=== PATIENT | male | born 1960 | race Hispanic/Latino ===

== ENCOUNTER → 2020-04-19 | Outpatient (CLI) | payer OTHER ==
[2020-04-19 14:38] LABS: BASOPHILS % (AUTO) 0.4 % (0.0-5.0); EOSINOPHILS % (AUTO) 0.8 % (0.0-8.0); HEMATOCRIT 45.4 % (42-54); MEAN CORPUSCULAR HEMOGLOBIN 30.1 pg (27.0-33.0); MEAN CORPUSCULAR HGB CONC 33.3 g/dL (32.0-36.0); MEAN CORPUSCULAR VOLUME 90.4 fL (79-99); MONOCYTES % (AUTO) 6.9 % (3.0-13.0); NEUTROPHILS % (AUTO) 70.6 % (40.0-77.0); PLATELET COUNT (AUTO) 210 K/uL (130-400); RED BLOOD CELL COUNT(AUTO) 5.02 MIL/uL (4.50-6.20); RED CELL DISTRIBUTION WIDTH 11.9 % (11.0-15.5); WHITE BLOOD COUNT (AUTO) 12.6 K/uL (4.8-10.8)
[2020-04-19 14:52] LABS: CREATININE 0.9 mg/dL (0.5-1.5)
== END | disposition home or self-care (01) ==
LOC: LAB 12:32
PROVIDERS: ATTEND Urology
DX: R19.00 Intra-abdominal and pelvic swelling, mass and lump, unspecified site (principal)
CPT/HCPCS: 36415; 80048; 85025

== ENCOUNTER → 2020-05-26 | Outpatient (CLI) | payer OTHER ==
[2020-05-26 13:51] LABS: BASOPHILS % (AUTO) 0.7 % (0.0-5.0); EOSINOPHILS % (AUTO) 1.9 % (0.0-8.0); LYMPHOCYTES % (AUTO) 22.6 % (21.0-51.0); MEAN CORPUSCULAR HEMOGLOBIN 29.6 pg (27.0-33.0); MEAN CORPUSCULAR VOLUME 89.7 fL (79-99); NEUTROPHILS % (AUTO) 67.6 % (40.0-77.0); PLATELET COUNT (AUTO) 212 K/uL (130-400); RED BLOOD CELL COUNT(AUTO) 5.13 MIL/uL (4.50-6.20); RED CELL DISTRIBUTION WIDTH 11.9 % (11.0-15.5); WHITE BLOOD COUNT (AUTO) 8.6 K/uL (4.8-10.8)
[2020-05-26 14:01] LABS: CREATININE 1.1 mg/dL (0.5-1.5); POTASSIUM 4.4 mmol/L (3.5-5.1)
== END | disposition home or self-care (01) ==
LOC: LAB 13:16
PROVIDERS: ATTEND Urology
DX: R19.00 Intra-abdominal and pelvic swelling, mass and lump, unspecified site (principal)
CPT/HCPCS: 36415; 80048; 85025

== ENCOUNTER → 2020-05-30 | Outpatient (CLI) | payer OTHER ==
[~2020-05-30] MED LIST: IOHEXOL-350 75 ML VIAL IV ONE
== END | disposition home or self-care (01) ==
LOC: RAH 07:42
PROVIDERS: ATTEND Urology
DX: K76.0 Fatty (change of) liver, not elsewhere classified (principal); N28.1 Cyst of kidney, acquired; R19.00 Intra-abdominal and pelvic swelling, mass and lump, unspecified site
CPT/HCPCS: 74178; Q9967

== ENCOUNTER 2024-11-29 17:33 | Emergency (ER) | payer MEDICARE ==
[~2024-11-29] VITALS: Ht 172.7 cm; Wt 78.9 kg
[~2024-11-29 17:33] MED LIST changes: +ESCI-8 PO; +FAMO20TA8 PO; -IOHEXOL-350 75 ML VIAL IV ONE; +LISI10TA24 PO; +NAPR-1194 PO; +OMEP40CA21 PO; +PRAV20TA59 PO; +ZOLP-685 PO
--- NOTE | 2024-11-29 17:50 | ERN ---
ED Note History of Present Illness Stated Complaint: INFECTION IN COLON Time Seen by MD: 17:35 Time Seen by Midlevel: 17:35 Dictation: The patient is a 64-year-old male with a history of hypertension, hyperlipidemia, cholecystectomy, back surgery and neurogenic bladder who self scab who presents to the emergency department with complaints of burning urination onset five days ago associated with body aches, fever, dizziness. Patient reports he thinks he has not urinary tract infection because these are the same symptoms he has when he has a infection. Patient denies any falls or head trauma. Denies any use of blood thinners. Denies any vomiting or diarrhea but reports occasional nausea. Allergies: Coded Allergies: No Known Drug Allergies (Unverified Allergy, Unknown, 03/20/22) Home Meds Reported Medications Naproxen (Naproxen) 500 Mg Tablet, 500 MG PO BID PRN for PAIN LEVEL 1 TO 5, TAB 03/21/22 Zolpidem Tartrate (Ambien) 10 Mg Tablet, 10 MG PO HSPRN, TAB 03/21/22 Famotidine (Famotidine) 20 Mg Tablet, 20 MG PO HS, TAB 03/21/22 Pravastatin Sodium (Pravastatin Sodium) 20 Mg Tablet, 20 MG PO DAILY, TAB 03/21/22 Escitalopram Oxalate (Escitalopram Oxalate) 10 Mg Tablet, 10 MG PO DAILY, TAB 03/21/22 Lisinopril (Lisinopril) 10 Mg Tablet, 10 MG PO DAILY, TAB 03/21/22 Omeprazole (Omeprazole) 40 Mg Capsule.dr, 40 MG PO DAILY, CAP 03/21/22 Past Medical History Past Medical History: Anxiety, Depression, GERD, High Cholesterol, Hypertension Surgical History: Cholecystectomy Surgical History Other: BACK SX (1998) Social History: Negative RN Note Reviewed/Agreed w/PFSH: Yes Review of System Dictation Constitutional: Negative for ,chills, and weight loss positive for body aches, fevers Eyes: Negative for injury, pain,redness, and discharge ENT: Negative for injury,pain or swelling Cardiovascular: Negative for chest pain, palpitations, and edema Respiratory: Negative for shortness of breath, cough, and wheezing, Abdomen/GI: Negative for abdominal pain, nausea, vomiting, diarrhea, and constipation Back: Negative for injury and pain : Negative for injury, bleeding and discharge positive for burning urination MS/Extremity: Negative for injury and deformity Skin: Negative for rash, and discoloration Neuro: Negative for headache, weakness, numbness, tingling, and seizure Psych: Negative for suicide ideation, homicidal ideation, and hallucinations Initial Vital Sign VS Vital Signs Date Time Temp Pulse Resp B/P (MAP) Pulse Ox O2 Delivery O2 Flow Rate FiO2 11/29/24 18:05 98.2 77 16 144/91 95 Room Air 0 11/29/24 18:11 21 Physical Exam Dictation Vital Signs reviewed General Appearance: Alert, oriented x 3, no acute distress, well developed, nourished. Head and Face: non-traumatic. Eyes: PERRL, pink conjunctivas, eyelid no trauma, anterior chamber with arcus senilis. Ears: Pinnas intact and no signs of trauma or erythema ear canals clear and no discharge TM no erythema Nose: No discharge, no bleeding. Oropharynx: Mouth normal, tongue pink. pharynx clear,no erythema, tonsils no exudates, no abscesses noted, mucous membrane moist Neck: Supple, non-tender, no thyromegaly, no masses, no JVD, no bruits Breast:Deferred Chest:No tenderness, no crepitus, no paradoxical movement, no retractions Lungs:Clear, well-ventilated, symmetric, no rales, no wheezing, no rhonchi, no stridor, good breath sounds bilaterally Heart: Regular rate, regular rhythm, no murmur, no gallops Vascular: no peripheral edema, Abdomen: Soft, positive bowel sounds, nondistended, no guarding, nontender, no rebound, no masses no hepatomegaly, no splenomegaly, no Flores's sign, no hernias. Rectal: Deferred Genital: Deferred Neurological: Normal speech, motor function intact, sensory function intact , upper extremities equal in strength, lower extremities equal in strength Musculoskeletal: Neck nontender, full range of motion, back nontender, full range of motion, Extremities: nontender, full range of motion Skin: Color pink, dry, no turgor, no rash, no lacerations, no abrasions, no contusions. Lymphatic: Deferred Results (Laboratory/Radiology) Laboratory/Radiology Laboratory Tests Test 11/29/24 18:22 White Blood Count 7.7 K/uL (4.8-10.8) Red Blood Count 4.98 MIL/uL (4.50-6.20) Hemoglobin 14.9 g/dL (14.0-18.0) Hematocrit 44.4 % (42-54) Mean Corpuscular Volume 89.2 fL (79-99) Mean Corpuscular Hemoglobin 29.9 pg (27.0-33.0) Mean Corpuscular Hemoglobin Concent 33.6 g/dL (32.0-36.0) Red Cell Distribution Width 12.2 % (11.0-15.5) Platelet Count 199 K/uL (130-400) Mean Platelet Volume 9.1 fL (7.5-10.5) Immature Granulocyte % (Auto) 0.3 % (0-1) Neutrophils (%) (Auto) 53.0 % (40.0-77.0) Lymphocytes (%) (Auto) 32.4 % (21.0-51.0) Monocytes (%) (Auto) 9.2 % (3.0-13.0) Eosinophils (%) (Auto) 4.3 % (0.0-8.0) Basophils (%) (Auto) 0.8 % (0.0-5.0) Neutrophils # (Auto) 4.1 K/uL (1.8-7.7) Lymphocytes # (Auto) 2.5 K/uL (1.0-4.8) Monocytes # (Auto) 0.7 K/uL (0.1-1.0) Eosinophils # (Auto) 0.33 K/uL (0.00-0.70) Basophils # (Auto) 0.06 K/uL (0.00-0.20) Absolute Immature Granulocyte (auto 0.02 K/uL (0-1) Nucleated Red Blood Cells 0.0 % (0.0-0.19) Urine Color LIGHT-YELLOW (YELLOW) Urine Appearance CLEAR (CLEAR) Urine pH 7.5 (5.0-8.0) Urine Specific [place] 1.019 (1.001-1.031) Urine Protein NEGATIVE mg/dL (NEGATIVE) Urine Glucose (UA) NEGATIVE mg/dL (NEGATIVE) Urine Ketones NEGATIVE mg/dL (NEGATIVE) Urine Occult Blood NEGATIVE (NEGATIVE) Urine Nitrate NEGATIVE (NEGATIVE) Urine Bilirubin NEGATIVE mg/dL (NEGATIVE) Urine Urobilinogen 2.0 mg/dL (0.2-1.0) H Urine Leukocyte Esterase 500 Marlys/uL (NEGATIVE) H Urine RBC 2-5 /HPF (0-1) H Urine WBC 11-25 /HPF (0-1) H Urine Squamous Epithelial Cells RARE /HPF (0-2) Urine Bacteria FEW /HPF (None Seen) Sodium Level 140 mmol/L (136-145) Potassium Level 4.0 mmol/L (3.5-5.1) Chloride Level 105 mmol/L (101-111) Carbon Dioxide Level 32 mmol/L (21-32) Blood Urea Nitrogen 21 mg/dL (7-18) H Creatinine 1.2 mg/dL (0.5-1.3) Glomerular Filtration Rate Calc 68 mL/min (>90) Random Glucose 106 mg/dL (70-105) H Total Calcium 9.0 mg/dL (8.5-10.1) Total Creatine Kinase 303 U/L (21-232) H Troponin I High Sensitivity 6 ng/L (4-75) REASON: dizzy ORDERING PHYSICIAN: VJ JOSHI HEALTH INFORMATION TECHNICIAN PROCEDURE: CXR1VW - CHEST 1VW History CHEST 1VW HISTORY: No additional history given. COMPARISON: None FINDINGS: A frontal projection of the chest was obtained. No acute pulmonary infiltrates is seen. The heart is normal in size. Degenerative changes are seen. Prominent interstitial markings are seen. No evidence of aortic calcification is seen. IMPRESSION: 1. No acute pulmonary infiltrate is seen. Labs Reviewed?: Yes EKG: (+) rhythm (Sinus rhythm) EKG Comment: Date:11/29/2024 Time:1808 Ventricular rate:85 NC interval:148 QRS duration:95 QT/QTc:453 EKG interpretation: Sinus rhythm Reviewed by ED Attending no STEMI ED Course ED Course Orders Procedure Category Date Status Time Cbc With Differential LAB 11/29/24 Complete 17:59 Troponin I High LAB 11/29/24 Complete Sensitivity 17:59 Urinalysis Profile LAB 11/29/24 Complete 17:59 12 Lead Ekg Tracing- EKG 11/29/24 Logged Technical 17:59 0.9%Nacl 1000ml (Ns PHA 11/29/24 Complete 1000ml) 18:00 Ondansetron 4mg Inj PHA 11/29/24 Complete (Zofran 4mg Inj) 18:00 Creatine Kinase, Total LAB 11/29/24 Complete 17:59 Chest 1vw RAD 11/29/24 Resulted 17:59 Basic Metabolic Panel LAB 11/29/24 Complete 17:59 Orthostatic Vital CPOE 11/29/24 Transmitted Signs 17:59 Culture Urine SOLEDAD 11/29/24 In Process 18:36 Ceftriaxone 1g Vial PHA 11/29/24 Complete (Rocephine 1g Inj) 19:30 Current Medications Medications (Trade) Dose Ordered Sig/Len Route PRN Reason Start Time Stop Time Status Last Admin Dose Admin Ceftriaxone Sodium (ROCEphine 1G INJ) 1 gm ONCE ONCE IVPB 11/29/24 19:30 11/29/24 19:31 DC 11/29/24 20:04 Ondansetron HCl (zoFRAN 4MG INJ) 4 mg ONCE ONCE IVP 11/29/24 18:00 11/29/24 18:25 DC 11/29/24 20:04 Sodium Chloride 1,000 ml @ 0 mls/hr ONCE ONCE IV 11/29/24 18:00 11/29/24 18:25 DC 11/29/24 20:04 Vital Signs Date Time Temp Pulse Resp B/P (MAP) Pulse Ox O2 Delivery O2 Flow Rate FiO2 11/29/24 18:11 98.2 77 16 144/91 96 Room Air* 0 21 11/29/24 18:05 98.2 77 16 144/91 95 Room Air 0 Medical Decision Making MDM The patient is a 64-year-old male with a history of hypertension, hyperlipidemia, cholecystectomy, back surgery and neurogenic bladder who self scab who presents to the emergency department with complaints of burning urination onset five days ago associated with body aches, fever, dizziness. Patient reports he thinks he has not urinary tract infection because these are the same symptoms he has when he has a infection. Patient denies any falls or head trauma. Denies any use of blood thinners. Denies any vomiting or diarrhea but reports occasional nausea. CBC showed no leukocytosis, no anemia, chemistry showed GFR of 68, creatinine of 1.2, CK of three of three, negative troponin. Patient received IV fluids in ER. Urinalysis positive for leukocyte esterase. Patient was given Rocephin and IV and we will be discharged with the antibiotics. On physical exam patient has a nontender abdomen, no CVA tenderness, patient neurologically intact. Steady gait. Stable vital signs, nontoxic appearance, Labs and imaging discussed with the patient who agrees to follow up with primary doctor florenceorrow. Patient instructed to ER if symptoms worsen Differential diagnosis: UTI, dehydration, pyelonephritis, electrolyte imbalance Need for hospitalization: Patient does not meet criteria for hospitalization. There are no social concerns with this patient. DX & DISP Disposition: Discharge Departure Impression: Primary Impression: UTI (urinary tract infection) Additional Impression: Elevated CK Condition: Stable Scripts Ciprofloxacin HCl (Cipro) 500 Mg Tablet 1 TAB PO BID for 7 Days, #14 TAB 0 Refills Prov: VJ JOSHI 11/29/24 Additional Instructions: Please take your medications as prescribed. Follow up with your primary doctor in 1-2 days. If symptoms worsen please return to ER. FOLLOW-UP WITH PRIMARY CARE PROVIDER IN 1 TO 2 DAYS. TAKE MEDICATIONS DIRECTED HERE IN THE EMERGENCY ROOM. OKAY TO CONTINUE HOME MEDICATIONS UNLESS OTHERWISE DISCUSSED DURING YOUR VISIT IN THE EMERGENCY ROOM TODAY. RETURN TO YOUR NEAREST EMERGENCY ROOM IF SYMPTOMS WORSEN OR IF THERE IS NO IMPROVEMENT. CALL 911 IF YOU NEED IMMEDIATE ASSISTANCE. TAKE TYLENOL OR MOTRIN [id number] NEEDED AND IF NO CONTRAINDICATIONS ARE PRESENT. INCREASE ORAL HYDRATION. A WOUND CULTURE OR URINE CULTURE WAS ORDERED HERE IN THE EMERGENCY ROOM DEPARTMENT PLEASE FOLLOW-UP WITH PRIMARY CARE PROVIDER AND ADVISE THEM TO GET REPEAT PORTS FROM OUR FACILITY. IF YOU HAD ANY MELANIE WRAP/SPLINTS THAT WERE APPLIED HERE, PLEASE DO NOT REMOVE THEM UNTIL YOU SEE YOUR PRIMARY CARE OR SPECIALTY. Referrals: SELF,REFERRAL (PCP) Time of Disposition: 20:45 I have reviewed the case, and I agree with, Diagnosis and Plan VJ JOSHI Nov 29, 2024 17:50
[2024-11-29 18:11] VITALS: BP 144/91; PULSE 77; RESP 16; TEMP 98.3; O2SAT 96
[2024-11-29 18:33] LABS: BASOPHILS # (AUTO) 0.06 K/uL (0.00-0.20); BASOPHILS % (AUTO) 0.8 % (0.0-5.0); EOSINOPHILS # (AUTO) 0.33 K/uL (0.00-0.70); EOSINOPHILS % (AUTO) 4.3 % (0.0-8.0); HEMATOCRIT 44.4 % (42-54); IMMATURE GRANULOCYTE ABSOLUTE 0.02 K/uL (0-1); LYMPHOCYTES # (AUTO) 2.5 K/uL (1.0-4.8); LYMPHOCYTES % (AUTO) 32.4 % (21.0-51.0); MEAN CORPUSCULAR HEMOGLOBIN 29.9 pg (27.0-33.0); MEAN CORPUSCULAR HGB CONC 33.6 g/dL (32.0-36.0); MEAN CORPUSCULAR VOLUME 89.2 fL (79-99); MONOCYTES # (AUTO) 0.7 K/uL (0.1-1.0); MONOCYTES % (AUTO) 9.2 % (3.0-13.0); NEUTROPHILS # (AUTO) 4.1 K/uL (1.8-7.7); PLATELET COUNT (AUTO) 199 K/uL (130-400); RED BLOOD CELL COUNT(AUTO) 4.98 MIL/uL (4.50-6.20); RED CELL DISTRIBUTION WIDTH 12.2 % (11.0-15.5); WHITE BLOOD COUNT (AUTO) 7.7 K/uL (4.8-10.8)
[2024-11-29 18:34] LABS: APPEARANCE,URINE CLEAR (CLEAR); BILIRUBIN,URINE NEGATIVE (NEGATIVE); COLOR,URINE LIGHT-YELLOW (YELLOW); GLUCOSE, URINE (UA) NEGATIVE (NEGATIVE); KETONES,URINE NEGATIVE (NEGATIVE); LEUKOCYTE ESTERASE ,URINE 500 Leu/uL (NEGATIVE); NITRATE,URINE NEGATIVE (NEGATIVE); OCCULT BLOOD,URINE NEGATIVE (NEGATIVE); PH,URINE 7.5 (5.0-8.0); PROTEIN,URINE NEGATIVE (NEGATIVE)
[2024-11-29 18:35] LABS: ADD UA MICROSCOPIC YES
[2024-11-29 18:38] LABS: BACTERIA,URINE FEW /HPF (None Seen); MUCUS,URINE RARE LPF (None Seen); SQUAMOUS EPITHELIAL CELL,UR RARE /HPF (0-2)
[2024-11-29 19:06] LABS: CREATININE 1.2 mg/dL (0.5-1.3)
--- NOTE | 2024-11-29 19:31 | HMCIMG ---
History CHEST 1VW HISTORY: No additional history given. COMPARISON: None FINDINGS: A frontal projection of the chest was obtained. No acute pulmonary infiltrates is seen. The heart is normal in size. Degenerative changes are seen. Prominent interstitial markings are seen. No evidence of aortic calcification is seen. IMPRESSION: 1. No acute pulmonary infiltrate is seen.
[2024-11-29] MEDS: ondanSETRON 4MG INJ IVP ONE (20:04)
[2024-11-29] MEDS: cefTRIAXone 1G VIAL IVPB ONE (20:04)
[2024-11-29] MEDS: 0.9%NACL 1000ML 1,000 ML IV ONE (20:04)
[2024-11-29] MEDS ORDERED: CIPR-278 PO (20:48)
--- NOTE | 2024-11-30 06:34 | EKG ---
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
--- NOTE | 2024-12-03 09:29 | NUR ---
UPON REVIEWOF CULTURE RESULTS BY DR. ANTON, NEW RX NEEDED FOR MACROBID 100MG PO BID X7 DAYS. NO ANSWER TO PTS PHONE NUMBER ON FILE. WAS ABLE TO SPEAK TO PTS DAUGHTER, SHE WILL NOTIFY FATHER TO PURCHASING INTERN NEW RX IN [facility].
== END 2024-11-29 21:37 | disposition home or self-care (01) ==
LOC: EDH 17:33
DX: N39.0 Urinary tract infection, site not specified (principal); R74.8 Abnormal levels of other serum enzymes; F41.9 Anxiety disorder, unspecified; F32.A Depression, unspecified; E78.00 Pure hypercholesterolemia, unspecified; I10 Essential (primary) hypertension; Z79.899 Other long term (current) drug therapy; Z90.49 Acquired absence of other specified parts of digestive tract
CPT/HCPCS: 99285; 96374; 71045; 96361; 96375; 82550; 84484; 80048; 85025; 87086 ×2; 87186; 81001; 36415; 93005; J7030; J0696; J2405; 99284

== ENCOUNTER 2024-12-01 16:13 | Emergency (ER) | payer MEDICARE ==
[~2024-12-01] VITALS: Ht 172.7 cm; Wt 78.9 kg
[~2024-12-01 16:13] MED LIST changes: +CIPR-278 PO
[2024-12-01 16:42] VITALS: BP 150/88; PULSE 73; RESP 20; TEMP 98.1
[2024-12-01] MEDS ORDERED: 0.9%NACL 1000ML 1,000 ML IV STA (16:48)
[2024-12-01 17:14] LABS: BASOPHILS # (AUTO) 0.06 K/uL (0.00-0.20); BASOPHILS % (AUTO) 0.9 % (0.0-5.0); EOSINOPHILS # (AUTO) 0.27 K/uL (0.00-0.70); HEMATOCRIT 45.3 % (42-54); IMMATURE GRANULOCYTE ABSOLUTE 0.02 K/uL (0-1); LYMPHOCYTES # (AUTO) 2.3 K/uL (1.0-4.8); LYMPHOCYTES % (AUTO) 34.4 % (21.0-51.0); MEAN CORPUSCULAR HEMOGLOBIN 30.4 pg (27.0-33.0); MEAN CORPUSCULAR HGB CONC 33.3 g/dL (32.0-36.0); MEAN CORPUSCULAR VOLUME 91.3 fL (79-99); MONOCYTES # (AUTO) 0.6 K/uL (0.1-1.0); MONOCYTES % (AUTO) 8.5 % (3.0-13.0); NEUTROPHILS # (AUTO) 3.5 K/uL (1.8-7.7); NEUTROPHILS % (AUTO) 51.9 % (40.0-77.0); PLATELET COUNT (AUTO) 185 K/uL (130-400); RED BLOOD CELL COUNT(AUTO) 4.96 MIL/uL (4.50-6.20); RED CELL DISTRIBUTION WIDTH 12.1 % (11.0-15.5); WHITE BLOOD COUNT (AUTO) 6.8 K/uL (4.8-10.8)
[2024-12-01 17:17] LABS: CREATININE 1.1 mg/dL (0.5-1.3)
--- NOTE | 2024-12-01 18:20 | NUR ---
Chele conti in ED - 12/01/24 at 1822 by [email or web address] PT JUST NOW ASSIGNED TO MY ED BED 15 BUT NOT PLACED OF YET
[2024-12-01] MEDS ORDERED: MEROPENEM 1GM 1 GM VIAL IVPB ONE (18:30)
--- NOTE | 2024-12-01 18:30 | NUR ---
PT CAME UP TO TRIAGE WINDOW REQUESTING FOR DOCUMENTS HE PROVIDED TO ER PROVIDER AND WANTING TO LEAVE AND NOT WAIT ANY LONGER. PT MADE AWARE OF HIS CONDITION AND NEEDING TO GET ADMITTED FOR CHRONIC UTI. PT INSISTED AND HE WAS EXPLAINED AMA PROCEDURE AND VERBALIZED UNDERSTANDING, REFUSED TO SIGN. ER PROVIDER SHANNA CHIN AND ADMITTING PROVIDER ALEX NAJERA MADE AWARE.
--- NOTE | 2024-12-01 18:32 | ERN ---
ED Note History of Present Illness Stated Complaint: PHYSICIANS Chief Complaint: Painful Urination Time Seen by MD: 16:21 Time Seen by Midlevel: 16:28 Dictation: 64-year-old coming in with complaints of burning sensation upon urination and bilateral flank pain. Patient was seen here on 11/29 and diagnosed with a urinary tract infection sent home on ciprofloxacin. Patient had a follow up with his PCP and was sent here for admission for IV antibiotics. Patient has a history of back surgery and has not urine just a bladder as a result. Patient has a self catheterization. As a result so that patient has been come resistant to many antibiotics and was sent here for admission. Allergies: Coded Allergies: No Known Drug Allergies (Unverified Allergy, Unknown, 03/20/22) Home Meds Active Scripts Ciprofloxacin HCl (Cipro) 500 Mg Tablet, 1 TAB PO BID for 7 Days, #14 TAB 0 Refills Prov:VJ JOSHI AUTOMOTIVE COLLISION REPAIR INSTRUCTOR 11/29/24 Reported Medications Naproxen (Naproxen) 500 Mg Tablet, 500 MG PO BID PRN for PAIN LEVEL 1 TO 5, TAB 03/21/22 Zolpidem Tartrate (Ambien) 10 Mg Tablet, 10 MG PO HSPRN, TAB 03/21/22 Famotidine (Famotidine) 20 Mg Tablet, 20 MG PO HS, TAB 03/21/22 Pravastatin Sodium (Pravastatin Sodium) 20 Mg Tablet, 20 MG PO DAILY, TAB 03/21/22 Escitalopram Oxalate (Escitalopram Oxalate) 10 Mg Tablet, 10 MG PO DAILY, TAB 03/21/22 Lisinopril (Lisinopril) 10 Mg Tablet, 10 MG PO DAILY, TAB 03/21/22 Omeprazole (Omeprazole) 40 Mg Capsule.dr, 40 MG PO DAILY, CAP 03/21/22 Past Medical History Past Medical History: Anxiety, Depression, High Cholesterol, Hypertension, Other Additional Past Medical Hx: gastritis Surgical History: Other Surgical History Other: spinal sx, right hip sx Social History: Negative Review of System Dictation Constitutional: Negative for fever,chills, and weight loss Eyes: Negative for injury, pain,redness, and discharge ENT: Negative for injury,pain or swelling Cardiovascular: Negative for chest pain, palpitations, and edema Respiratory: Negative for shortness of breath, cough, and wheezing, Abdomen/GI: Negative for abdominal pain, nausea, vomiting, diarrhea, and constipation Back: Negative for injury and pain : Negative for injury, bleeding and discharge MS/Extremity: Negative for injury and deformity Skin: Negative for rash, and discoloration Neuro: Negative for headache, weakness, numbness, tingling, and seizure Psych: Negative for suicide ideation, homicidal ideation, and hallucinations Review of Systems: was completed Initial Vital Sign VS Vital Signs Date Time Temp Pulse Resp B/P (MAP) Pulse Ox O2 Delivery O2 Flow Rate FiO2 12/01/24 16:42 98.1 73 20 150/88 98 Room Air Physical Exam Dictation General: awake, alert, NAD Head/Face: Normocephalic, atraumatic Eyes: PERRL, EOMI, vision at baseline ENT: oral cavity clear, TMs clear, no signs of infection Neck: Trachea midline, supple, no nuchal rigidity Cardiovascular: RRR, normal S1/S2, No MRGs, no JVD Respiratory: CTAB, no respiratory distress, No rales or wheezes Abdomen: Soft, non-tender, non-distended, normal bowel sounds, no guarding or rebound. Skin: Warm, dry, normal turgor, no rash MS/Extremity: Pulses equal, no cyanosis, neurovascular intact, FROM Neuro: COAx4, GCS 15, strength 5/5, CN 2-12 intact, normal cerebellar exam, normal gait, Psych: Normal behavior, mood, and affect normal Results (Laboratory/Radiology) Laboratory/Radiology Laboratory Tests Test 12/01/24 16:50 White Blood Count 6.8 K/uL (4.8-10.8) Red Blood Count 4.96 MIL/uL (4.50-6.20) Hemoglobin 15.1 g/dL (14.0-18.0) Hematocrit 45.3 % (42-54) Mean Corpuscular Volume 91.3 fL (79-99) Mean Corpuscular Hemoglobin 30.4 pg (27.0-33.0) Mean Corpuscular Hemoglobin Concent 33.3 g/dL (32.0-36.0) Red Cell Distribution Width 12.1 % (11.0-15.5) Platelet Count 185 K/uL (130-400) Mean Platelet Volume 9.6 fL (7.5-10.5) Immature Granulocyte % (Auto) 0.3 % (0-1) Neutrophils (%) (Auto) 51.9 % (40.0-77.0) Lymphocytes (%) (Auto) 34.4 % (21.0-51.0) Monocytes (%) (Auto) 8.5 % (3.0-13.0) Eosinophils (%) (Auto) 4.0 % (0.0-8.0) Basophils (%) (Auto) 0.9 % (0.0-5.0) Neutrophils # (Auto) 3.5 K/uL (1.8-7.7) Lymphocytes # (Auto) 2.3 K/uL (1.0-4.8) Monocytes # (Auto) 0.6 K/uL (0.1-1.0) Eosinophils # (Auto) 0.27 K/uL (0.00-0.70) Basophils # (Auto) 0.06 K/uL (0.00-0.20) Absolute Immature Granulocyte (auto 0.02 K/uL (0-1) Nucleated Red Blood Cells 0.0 % (0.0-0.19) Sodium Level 142 mmol/L (136-145) Potassium Level 4.0 mmol/L (3.5-5.1) Chloride Level 104 mmol/L (101-111) Carbon Dioxide Level 28 mmol/L (21-32) Blood Urea Nitrogen 22 mg/dL (7-18) H Creatinine 1.1 mg/dL (0.5-1.3) Glomerular Filtration Rate Calc 75 mL/min (>90) Random Glucose 123 mg/dL (70-105) H Lactic Acid Level 1.5 mmol/L (0.8-2.5) Total Calcium 8.5 mg/dL (8.5-10.1) Labs Reviewed?: Yes ED Course ED Course Orders Procedure Category Date Status Time Cbc With Differential LAB 12/01/24 Complete 16:48 Basic Metabolic Panel LAB 12/01/24 Complete 16:48 Lactic Acid LAB 12/01/24 Complete 16:48 Blood Cult SOLEDAD 12/01/24 In Process 16:48 Urinalysis Profile LAB 12/01/24 Logged 16:48 0.9%Nacl 1000ml (Ns PHA 12/01/24 Complete 1000ml) 16:48 Meropenem 1gm (Merrem PHA 12/01/24 In Process 1gm) 18:30 Current Medications Medications (Trade) Dose Ordered Sig/Len Route PRN Reason Start Time Stop Time Status Last Admin Dose Admin Meropenem (Merrem 1gm) 1 gm ONCE ONCE IVPB 12/01/24 18:30 12/01/24 18:31 Sodium Chloride 1,000 ml @ 1,000 mls/hr Q1H STAT IV 12/01/24 16:48 12/01/24 17:47 DC Vital Signs Date Time Temp Pulse Resp B/P (MAP) Pulse Ox O2 Delivery O2 Flow Rate FiO2 12/01/24 16:42 98.1 73 20 150/88 98 Room Air Medical Decision Making MDM MDM: 64-year-old coming in with complaints of burning sensation upon urination and bilateral flank pain. Patient was seen here on 11/29 and diagnosed with a urinary tract infection sent home on ciprofloxacin. Patient had a follow up with his PCP and was sent here for admission for IV antibiotics. Patient has a history of back surgery and has not urine just a bladder as a result. Patient has a self catheterization. As a result so that patient has been come resistant to many antibiotics and was sent here for admission. Blood work is unremarkable, no leukocytosis. Patient does not have any fever, chills. Microbiology report came back positive for ESBL in the urine. Patient was started on meropenem one dose here in the ER. Spoke to SERGE Mcdowell for admitting team. Okay to admit. Differential diagnosis: Rationale: Tests considered and ordered secondary to shared decision making include: labs, ECG and radiology Previous outside records reviewed: Old ER visits. Risk of complication and/or morbidity or mortality of patient management: None Medications-Per medication reconciliation Need for hospitalization: Patient does meet criteria for hospitalization. Need for emergency major/minor surgery: No There are no social concerns with this patient. Prescription drug management Prescriptions will include symptomatic care Patient's prior external medical records from other ER visits were reviewed by me as indicated. Prior testing and results from previous visits were reviewed. Prior tests were taken into account with medical decision making and resource utilization, independent historian/historians were used to obtain complete medical history. I independently interpreted the test that were performed, results were reviewed by me and considered findings on radiology if ordered. Medical management and examination interpretation discussions were had by me with other qualified healthcare professionals as indicated for the patient's care. DX & DISP Disposition: Inpatient Decision to Admit Date: Dec 01, 2024 Decision to Admit Time: 18:31 Departure Impression: Primary Impression: UTI (urinary tract infection) Condition: Stable Referrals: RAEANN YATES MD (PCP) SHANNA CHANDRA NP Dec 01, 2024 18:31
== END 2024-12-01 18:58 | disposition left against medical advice (07) ==
LOC: EDH 16:13
DX: N39.0 Urinary tract infection, site not specified (principal); E78.00 Pure hypercholesterolemia, unspecified; F32.A Depression, unspecified; F41.9 Anxiety disorder, unspecified; I10 Essential (primary) hypertension; Z79.899 Other long term (current) drug therapy; Z98.890 Other specified postprocedural states
CPT/HCPCS: 36415; 80048; 83605; 85025; 87040; 99283